=== PATIENT | male | born 2005 | race Caucasian/White ===

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

== ENCOUNTER 2024-07-04 20:51 | Emergency (ER) | payer MEDICAID ==
[~2024-07-04] VITALS: Ht 182.9 cm; Wt 109.1 kg
[~2024-07-04 20:51] MED LIST changes: +ONDA-243 PO
[2024-07-04 20:55] VITALS: TEMP 98.7
[2024-07-04 21:34] LABS: BASOPHILS # (AUTO) 0.1 X10'3 (0-0.2); BASOPHILS % (AUTO) 0.7 % (0-1); EOSINOPHILS # (AUTO) 0.1 X10'3 (0-0.9); HEMATOCRIT 43.7 % (42.0-52.0); HEMOGLOBIN 15.1 g/dl (14.0-17.9); LYMPHOCYTES # (AUTO) 3.3 X10'3 (1.1-4.8); MEAN CORPUSCULAR HEMOGLOBIN 29.9 PG (27.0-31.0); MEAN CORPUSCULAR HGB CONC 34.5 g/dL (33.0-36.5); MEAN CORPUSCULAR VOLUME 86.5 FL (78-98); MEAN PLATELET VOLUME 9.4 FL (7.4-10.4); MONOCYTES # (AUTO) 0.7 X10'3 (0-0.9); MONOCYTES % (AUTO) 7.9 % (2-12); NEUTROPHILS # (AUTO) 4.7 X10'3 (1.8-7.7); NEUTROPHILS % (AUTO) 53.4 % (42-75); PLATELET COUNT 240 X10'3 (140-440); RED BLOOD COUNT 5.06 X10'6 (4.70-6.10); RED CELL DISTRIBUTION WIDTH 12.6 % (11.5-14.5); WHITE BLOOD COUNT 8.9 X10'3 (4.5-11.0)
[2024-07-04 21:51] LABS: ALANINE AMINOTRANSFERASE 27 U/L (12-78); ALBUMIN/GLOBULIN RATIO 1.3 (1.1-1.5); ALKALINE PHOSPHATASE 79 IU/L (20-180); ANION GAP 12 (8-16); ASPARTATE AMINO TRANSFERASE 11 U/L (10-37); BILIRUBIN,TOTAL 0.4 MG/DL (0.1-1.0); BLOOD UREA NITROGEN 16 MG/DL (7-18); BUN/CREATININE RATIO 14.3 (10.0-20.0); CHLORIDE 106 MMOL/L (99-107); CREATININE 1.12 MG/DL (0.60-1.10); GLUCOSE 137 MG/DL (70-104); POTASSIUM 3.9 MMOL/L (3.5-5.1); SODIUM 140 MMOL/L (135-145); TOTAL CARBON DIOXIDE 21.9 MMOL/L (24-32); eCRCL 115 ML/MIN; eGFR 84 ML/MIN
[2024-07-04 21:58] LABS: PRO BRAIN NATRIURETIC PEPTIDE < 30 PG/ML (0-125)
[2024-07-05 00:06] VITALS: BP 152/96; PULSE 81; RESP 20; O2SAT 100
[2024-07-05] MEDS ORDERED: LORA-269 PO (15:45)
== END 2024-07-05 02:56 | disposition left against medical advice (07) ==
LOC: ER 20:52
DX: R07.89 Other chest pain (principal); R42 Dizziness and giddiness; R06.02 Shortness of breath; Z53.21 Procedure and treatment not carried out due to patient leaving prior to being seen by health care provider; Z88.0 Allergy status to penicillin
CPT/HCPCS: 36415; 71045; 80053; 83880; 84484; 85025; 93005

== ENCOUNTER 2024-07-05 12:13 | Emergency (ER) | payer MEDICAID ==
[~2024-07-05] VITALS: Ht 198.1 cm; Wt 129.8 kg
[2024-07-05 12:29] VITALS: TEMP 98.6
[2024-07-05 13:03] LABS: BASOPHILS % (AUTO) 0.3 % (0-1); EOSINOPHILS # (AUTO) 0.1 X10'3 (0-0.9); EOSINOPHILS % (AUTO) 0.6 % (0-6); HEMATOCRIT 45.2 % (42.0-52.0); HEMOGLOBIN 15.5 g/dl (14.0-17.9); LYMPHOCYTES # (AUTO) 2.9 X10'3 (1.1-4.8); MEAN CORPUSCULAR HEMOGLOBIN 29.6 PG (27.0-31.0); MEAN CORPUSCULAR HGB CONC 34.3 g/dL (33.0-36.5); MEAN CORPUSCULAR VOLUME 86.2 FL (78-98); MEAN PLATELET VOLUME 9.5 FL (7.4-10.4); MONOCYTES # (AUTO) 0.6 X10'3 (0-0.9); MONOCYTES % (AUTO) 7.1 % (2-12); NEUTROPHILS # (AUTO) 4.8 X10'3 (1.8-7.7); PLATELET COUNT 246 X10'3 (140-440); RED BLOOD COUNT 5.24 X10'6 (4.70-6.10); RED CELL DISTRIBUTION WIDTH 12.5 % (11.5-14.5); WHITE BLOOD COUNT 8.4 X10'3 (4.5-11.0)
[2024-07-05 13:08] LABS: ALANINE AMINOTRANSFERASE 31 U/L (12-78); ALBUMIN 4.3 G/DL (3.4-5.0); ALBUMIN/GLOBULIN RATIO 1.4 (1.1-1.5); ALKALINE PHOSPHATASE 77 IU/L (20-180); ANION GAP 11 (8-16); ASPARTATE AMINO TRANSFERASE 13 U/L (10-37); BILIRUBIN,TOTAL 0.9 MG/DL (0.1-1.0); BLOOD UREA NITROGEN 13 MG/DL (7-18); CALCIUM 9.7 MG/DL (8.5-10.1); CHLORIDE 107 MMOL/L (99-107); CREATININE 1.08 MG/DL (0.60-1.10); GLUCOSE 111 MG/DL (70-104); POTASSIUM 3.3 MMOL/L (3.5-5.1); SODIUM 142 MMOL/L (135-145); TOTAL CARBON DIOXIDE 23.9 MMOL/L (24-32); TOTAL PROTEIN 7.4 G/DL (6.4-8.2); eCRCL 141 ML/MIN; eGFR 87 ML/MIN
[2024-07-05 13:20] LABS: PRO BRAIN NATRIURETIC PEPTIDE 37 PG/ML (0-125)
[2024-07-05 15:31] VITALS: BP 129/84; PULSE 80; RESP 16; O2SAT 98
[2024-07-05] MEDS ORDERED: LORA-269 PO (15:45)
[2024-07-05] MEDS: potassium Cl 20 mEq SR tablet PO STA (16:10)
[2024-07-05] MEDS: LORazepam 1 MG tablet PO ONE (16:10)
== END 2024-07-05 15:50 | disposition home or self-care (01) ==
LOC: ER 12:14
DX: R00.2 Palpitations (principal); E87.6 Hypokalemia; F20.9 Schizophrenia, unspecified; R06.02 Shortness of breath; R07.89 Other chest pain; Z88.2 Allergy status to sulfonamides
CPT/HCPCS: 36415; 71045; 80053; 83880; 84484; 85025; 93005; 99285

== ENCOUNTER 2024-07-19 07:44 | Outpatient (CLI) | payer MEDICAID ==
[2024-07-19] VITALS (21 sets, daily range): BP systolic 106–139; BP diastolic 42–95; PULSE 68–92
[~2024-07-19 07:44] MED LIST changes: +LORA-269 PO
== END 2024-07-19 23:59 | disposition home or self-care (01) ==
LOC: CARD DIAG 07:44
PROVIDERS: ATTEND Internal Medicine Cardiovascular Disease
DX: G90.A Postural orthostatic tachycardia syndrome [POTS] (principal); R00.0 Tachycardia, unspecified
CPT/HCPCS: 93660

== ENCOUNTER 2025-06-05 10:22 | Outpatient (CLI) | payer MEDICAID ==
--- NOTE | 2025-06-06 19:45 | RADIOLOGY REPORT ---
EXAM: MR MRI C SPINE CLINICAL HISTORY: RADICULOPATHY, CERVICAL REGION COMPARISON: None TECHNIQUE: MRI of the cervical spine was performed without contrast. FINDINGS: Vertebral body height is preserved. Vertebral body alignment is within normal limits. Vertebral marrow signal is essentially normal. No spinal cord edema. C2-3: No significant spinal canal or foraminal stenosis. C3-4: No significant spinal canal or foraminal stenosis. C4-5: No significant spinal canal or foraminal stenosis. C5-6: No significant spinal canal or foraminal stenosis. C6-7: No significant spinal canal or foraminal stenosis. C7-T1: No significant spinal canal or foraminal stenosis. The paraspinal tissues are unremarkable. IMPRESSION: No acute fracture. No significant central canal or foraminal stenosis.
== END 2025-06-05 23:59 | disposition home or self-care (01) ==
LOC: MRI02 10:22
PROVIDERS: ATTEND Nurse Practitioner Family
DX: M54.12 Radiculopathy, cervical region (principal)
CPT/HCPCS: 72141